=== PATIENT | male | born 1985 | race Caucasian/White ===

== ENCOUNTER → 2020-09-09 | Outpatient (CLI) | payer BC ==
--- NOTE | 2020-09-09 11:13 | XR ---
EXAMINATION TYPE: XR chest 2V DATE OF EXAM: 09/09/2020 COMPARISON: NONE HISTORY: Chest pain TECHNIQUE: Frontal and lateral views of the chest are obtained. FINDINGS: There is no focal air space opacity. No evidence for pneumothorax. No pleural effusion. The cardiac silhouette size is within normal limits. The osseous structures are grossly intact. IMPRESSION: 1. No acute cardiopulmonary process.
--- NOTE | 2020-09-09 13:04 | CT ---
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 FINDINGS: LUNG BASES-: No visible nodule. No infiltrate. LIVER/GB: No calcified gallstones. No space occupying hepatic lesion. Biliary tree is of normal ca liber. PANCREAS: No inflammation. No distinct mass. SPLEEN: No splenic enlargement. No lesion seen. ADRENALS: No nodule. No thickening. KIDNEYS/BLADDER: No hydronephrosis. No nephrolithiasis. No distinct renal mass. Urinary bladder g rossly unremarkable. BOWEL: Normal appendix. Normal bowel caliber. No inflammation. GENITAL ORGANS: No gross abnormality. LYMPH NODES: No greater than 1cm abdominal or pelvic lymph nodes are appreciated. AORTA: No significant abnormality. OSSEOUS STRUCTURES: No significant abnormality is seen. OTHER: No significant additional abnormality is seen. IMPRESSION: 1. No evidence for metastatic disease.
== END | disposition home or self-care (01) ==
LOC: RADCTMAIN 10:41
PROVIDERS: ATTEND Urology
DX: C62.92 Malignant neoplasm of left testis, unspecified whether descended or undescended (principal); Z88.5 Allergy status to narcotic agent; Z88.8 Allergy status to other drugs, medicaments and biological substances
CPT/HCPCS: 71046; 74177; Q9967 ×2

== ENCOUNTER → 2021-02-17 | Outpatient (CLI) | payer BC ==
--- NOTE | 2021-02-17 11:32 | XR ---
EXAMINATION TYPE: XR chest 2V DATE OF EXAM: 02/17/2021 COMPARISON: 09/09/2020 HISTORY: Chest pain TECHNIQUE: Frontal and lateral views of the chest are obtained. FINDINGS: There is no focal air space opacity. No evidence for pneumothorax. No pleural effusion. The cardiac silhouette size is within normal limits. The osseous structures are grossly intact. IMPRESSION: 1. No acute cardiopulmonary process.
--- NOTE | 2021-02-17 13:37 | CT ---
EXAMINATION TYPE: CT abdomen pelvis w con DATE OF EXAM: 02/17/2021 COMPARISON: 09/09/2020 HISTORY: follow up testicular cancer CT DLP: 444.1 mGycm CONTRAST: CT scan of the abdomen and pelvis is performed with Oral Contrast and with IV Contrast, patient injec alicja with 100 mL of Isovue 300. FINDINGS: LUNG BASES-: No visible nodule. No infiltrate. LIVER/GB: No calcified gallstones. No space occupying hepatic lesion. Biliary tree is of normal ca liber. PANCREAS: No inflammation. No distinct mass. SPLEEN: No splenic enlargement. No lesion seen. ADRENALS: No nodule. No thickening. KIDNEYS/BLADDER: No hydronephrosis. No nephrolithiasis. No distinct renal mass. Urinary bladder g rossly unremarkable. BOWEL: Normal appendix. Normal bowel caliber. No inflammation. GENITAL ORGANS: No gross abnormality. LYMPH NODES: No greater than 1cm abdominal or pelvic lymph nodes are appreciated. Retroperitoneal cl ips noted. AORTA: No significant abnormality. OSSEOUS STRUCTURES: No significant abnormality is seen. OTHER: No significant additional abnormality is seen. IMPRESSION: 1. No evidence for metastatic disease.
== END ==
LOC: RADCTMAIN 11:04
PROVIDERS: ATTEND Urology
DX: C62.90 Malignant neoplasm of unspecified testis, unspecified whether descended or undescended (principal); R07.9 Chest pain, unspecified
CPT/HCPCS: 71046; 74177; Q9967

== ENCOUNTER → 2022-02-18 | Outpatient (CLI) | payer BC ==
--- NOTE | 2022-02-19 08:15 | CT ---
EXAMINATION TYPE: CT abdomen pelvis w con CT DLP: 412.9 mGycm, Automated exposure control for dose reduction was used. DATE OF EXAM: 02/18/2022 4:45 PM COMPARISON: CT abdomen pelvis most recent from 02/17/2021. CLINICAL INDICATION:Male, 36 years old with history of C62.00 MAL NEOPLASM OF TESTIS; Post cancer obs ervation, testis CA s/p double orchiotomy. TECHNIQUE: Standard CT of the abdomen and pelvis following the administration of 100 cc of Isovue 3 00 IV contrast material. Coronal and sagittal reformats were performed. FINDINGS: LOWER CHEST: Unremarkable ABDOMEN LIVER: Unremarkable GALLBLADDER AND BILE DUCTS: Layering increased densities within the lumen consistent with gallstones are present. PANCREAS: Unremarkable. SPLEEN: Unremarkable. ADRENAL GLANDS: Unremarkable. KIDNEYS AND URETERS: No evidence of hydronephrosis or renal calculus. The ureters are unremarkable. PELVIS BLADDER: Unremarkable REPRODUCTIVE: The testes are surgically removed there is a prosthetic testes seen within the scrotal sac. ABDOMEN & PELVIS STOMACH AND BOWEL: No evidence of bowel obstruction. PERITONEUM: No evidence of pneumoperitoneum or free fluid. Scattered surgical clips are seen in the r etroperitoneum. VASCULATURE: No evidence of aortic aneurysm. MUSCULOSKELETAL: No acute osseous abnormalities LYMPH NODES: No gross evidence for lymphadenopathy. SOFT TISSUE/ABDOMINAL WALL: Unremarkable IMPRESSION: 1. No convincing evidence for recurrent disease. 2. Cholelithiasis.
--- NOTE | 2022-02-20 20:37 | XR ---
EXAMINATION TYPE: XR chest 2V DATE OF EXAM: 02/18/2022 COMPARISON: 02/17/2021 INDICATION: Testicular cancer TECHNIQUE: Frontal and lateral views of the chest are obtained. FINDINGS: The heart size is normal. The pulmonary vasculature is normal. Just inferior to the scapular tip is an ill-defined slight increased density not previously identifie d. Additional evaluation with CT chest recommended. IMPRESSION: 1. There is ill-defined slight increased density measuring 1.9 cm inferior to the left scapular tip. Additional workup with CT is recommended.
== END | disposition home or self-care (01) ==
LOC: RADCTMAIN 16:05
PROVIDERS: ATTEND Urology
DX: C62.00 Malignant neoplasm of unspecified undescended testis (principal); K80.20 Calculus of gallbladder without cholecystitis without obstruction
CPT/HCPCS: 71046; 74177; Q9967

== ENCOUNTER → 2022-03-09 | Outpatient (CLI) | payer BC ==
--- NOTE | 2022-03-09 14:19 | CT ---
EXAMINATION TYPE: CT chest w con DATE OF EXAM: 03/09/2022 COMPARISON: HISTORY: testicular CA CT DLP: 169.1 mGycm Automated exposure control for dose reduction was used. TECHNIQUE: CT scan of the chest is performed with IV Contrast, patient injected with 100 mL of Isovue 300. MIP Images are created on CT scanner and reviewed. 3D reconstructed images are created on an independent workstation and reviewed. FINDINGS: LUNGS: The lungs are grossly clear, there is no consolidative pneumonia. There is no pleural effusi on or pneumothorax seen. The tracheobronchial tree is patent. Biapical pleural thickening noted. Sub -5 mm subpleural nodules in the apices likely is related to pleural thickening and benign. MEDIASTINUM: There are no greater than 1 cm hilar or mediastinal lymph nodes. No pericardial effusi on is seen. Residual thymic tissue present in the anterior mediastinum. Aorta of normal caliber. Hea rt size normal. Pulmonary arteries 7 optimally. OTHER: Mild hypertrophic changes of the spine. Multiple gallstones again noted. IMPRESSION: 1. No diagnostic evidence of metastases. 2. Cholelithiasis. 3. Apical pleural thickening with some 5 mm subpleural nodularity likely is benign.
== END | disposition home or self-care (01) ==
LOC: RADCTMAIN 09:24
PROVIDERS: ATTEND Urology
DX: C62.90 Malignant neoplasm of unspecified testis, unspecified whether descended or undescended (principal); K80.20 Calculus of gallbladder without cholecystitis without obstruction; J94.8 Other specified pleural conditions
CPT/HCPCS: 71260; Q9967

== ENCOUNTER 2022-08-24 12:46 | Emergency (ER) | payer BC ==
[2022-08-24 12:56] VITALS: TEMP 98
[2022-08-24] MEDS ORDERED: SODIUM CHLORIDE 0.9% 1,000 ML IV STA (12:56)
[2022-08-24 13:12] LABS: Basophils # (A) 0.1 k/uL (0-0.2); Basophils % (A) 1 %; Eosinophils % (A) 1 %; HCT 43.3 % (39.0-53.0); HGB 14.1 gm/dL (13.0-17.5); Lymphocytes # (A) 1.8 k/uL (1.0-4.8); Lymphocytes % (A) 35 %; MCH 29.4 pg (25.0-35.0); MCHC 32.6 g/dL (31.0-37.0); MCV 90.3 fL (80.0-100.0); Mean Platelet Volume 9.5; Monocytes # (A) 0.3 k/uL (0-1.0); Monocytes % (A) 6 %; Neutrophils # (A) 2.8 k/uL (1.3-7.7); Neutrophils % (A) 53 %; Platelet Count 239 k/uL (150-450); WBC 5.2 k/uL (3.8-10.6)
[2022-08-24 13:22] LABS: ALT 25 U/L (4-49); AST 29 U/L (17-59); African American GFR (CKD) >90 (>60 ml/min/1.73 sqM); Albumin 4.9 g/dL (3.5-5.0); Alkaline Phosphatase 51 U/L (38-126); Anion Gap 20 mmol/L; Blood Urea Nitrogen 18 mg/dL (9-20); Calcium 9.3 mg/dL (8.4-10.2); Carbon Dioxide 17 mmol/L (22-30); Chloride 99 mmol/L (98-107); Glucose 118 mg/dL (74-99); Magnesium 1.9 mg/dL (1.6-2.3); Non-African American GFR(CKD) >90 (>60 ml/min/1.73 sqM); Potassium 3.3 mmol/L (3.5-5.1); Sodium 136 mmol/L (137-145); Total Bilirubin 0.4 mg/dL (0.2-1.3); Total Protein 7.6 g/dL (6.3-8.2)
[2022-08-24 13:24] LABS: Partial Thromboplastin Time 23.3 sec (22.0-30.0); Prothrombin Time 11.1 sec (9.0-12.0)
[2022-08-24] MEDS ORDERED: POTASSIUM CHLORIDE ER 20 MEQ TAB.ER PO STA (14:08)
--- NOTE | 2022-08-24 14:11 | ED ---
Anxiety HPI - General Chief Complaint: Anxiety Stated Complaint: Anxiety,syncope Time Seen by Provider: 08/24/22 12:48 Source: patient Mode of arrival: ambulatory - History of Present Illness Initial Comments: Patient's 36-year-old male with a past medical history testicular cancer status post orchiectomy of both testicles who presents to the emergency department with a chief complaint of anxiety. Patient was getting routine blood work drawn today when he had a vasovagal episode. Patient has history vasovagal syncope due to blood draws. The syncopal episode was witnessed by hospital staff. Patient did not fall or hit his head. He is not on blood thinners. Patient was unconscious for less than 30 seconds. After patient came to he became very anxious and had a panic attack. Patient started breathing very hard and he was sent to the emergency room. Patient reports anxiety currently. Admits to infrequent history panic attacks. He denies fever, chills, lightheadedness, dizziness, chest pain, shortness of breath, abdominal pain, nausea, vomiting, diarrhea. Does report pain in his left contracted hand. Denies injury. Denies history of cardiac disease including arrhythmia. Denies a family history of arrhythmia and sudden . - Related Data Home Medications: Home Medications Medication Instructions Recorded Confirmed Testosterone [Androgel 1.62%] 2 pump TRANSDERM DAILY 08/24/22 08/24/22 Previous Rx's Medication Instructions Recorded hydrOXYzine HCL 10 mg PO BID PRN #10 tab 08/24/22 Allergies/Adverse Reactions: Allergies Allergy/AdvReac Type Severity Reaction Status Date / Time codeine Allergy FAINTING Verified 08/24/22 13:35 AND DISORIENTED" hydrocodone [From Vicodin] Allergy fainting Verified 08/24/22 13:35 and disoriented Review of Systems ROS Statement: Those systems with pertinent positive or pertinent negative responses have been documented in the HPI. ROS Other: All systems not noted in ROS Statement are negative. Past Medical History Past Medical History: Cancer Additional Past Medical History / Comment(s): TESTICULAR CANCER History of Any Multi-Drug Resistant Organisms: None Reported Additional Past Surgical History / Comment(s): LYMPH NODES REMOVED IN GROIN,TESTICLE SURGERY Past Anesthesia/Blood Transfusion Reactions: No Reported Reaction Additional Past Anesthesia/Blood Transfusion Reaction / Comment(s): possible reaction to anesthesia 20 years unsure of reaction Past Psychological History: Anxiety Smoking Status: Never smoker - Past Family History Mother Family Medical History: Cancer General Exam General appearance: alert, anxious Eye exam: Present: normal appearance, PERRL, EOMI. Absent: scleral icterus, conjunctival injection, periorbital swelling Respiratory exam: Present: normal lung sounds bilaterally. Absent: respiratory distress, wheezes, rales, rhonchi, stridor, chest wall tenderness, accessory muscle use Cardiovascular Exam: Present: regular rate, normal rhythm, normal heart sounds. Absent: systolic murmur, diastolic murmur, rubs, gallop, clicks Extremities exam: Present: other (left contracted hand ) Neurological exam: Present: alert, oriented X3, CN II-XII intact Psychiatric exam: Present: normal affect, anxious. Absent: normal mood, homicidal ideation, suicidal ideation Skin exam: Present: warm, dry, intact, normal color. Absent: rash Course Vital Signs 08/24/22 08/24/22 12:49 14:55 Temperature 98.0 F 98.0 F Pulse Rate 54 L 73 Respiratory 32 H 16 Rate Blood Pressure 106/78 109/75 O2 Sat by Pulse 98 99 Oximetry Medical Decision Making - Medical Decision Making This is a 36-year-old male who presents for panic attack after vasovagal episode. Patient initially hyperventilating with left contracted hand. After breathing exercises patient is able to relax with slowed breathing and resolution of hand pain/contracture. Patient does not have chest pain or shortness of breath. He does not have history of cardiac disease. EKG shows sinus tachycardia withoutnew ST or T-wave abnormality. Laboratory studies obtained. There is mild hypokalemia at 3.3. There is respiratory alkalosis very likely due to hyperventilation. Troponin is within normal limits. Other laboratory studies are unremarkable. Chest x-ray negative for acute process. Patient given potassium supplement. He was observed closely in the emergency department and continued to feel well. He did not have any further panic attack symptoms or syncopal episodes. Patient will be discharged with hydroxyzine. We discussed vasovagal syncope in detail. Patient to follow-up with primary care provider regarding anxiety and syncope. He will have repeat potassium drawn with his PCP. Dr. Arce is my attending. - Lab Data Result diagrams: 08/24/22 13:03 08/24/22 13:03 Lab Results 08/24/22 08/24/2222 Range/Units 13:03 13:03 13:03 WBC 5.2 (3.8-10.6) k/uL RBC 4.80 (4.30-5.90) m/uL Hgb 14.1 (13.0-17.5) gm/dL Hct 43.3 (39.0-53.0) % MCV 90.3 (80.0-100.0) fL MCH 29.4 (25.0-35.0) pg MCHC 32.6 (31.0-37.0) g/dL RDW 13.0 (11.5-15.5) % Plt Count 239 (150-450) k/uL MPV 9.5 Neutrophils % 53 % Lymphocytes % 35 % Monocytes % 6 % Eosinophils % 1 % Basophils % 1 % Neutrophils # 2.8 (1.3-7.7) k/uL Lymphocytes # 1.8 (1.0-4.8) k/uL Monocytes # 0.3 (0-1.0) k/uL Eosinophils # 0.0 (0-0.7) k/uL Basophils # 0.1 (0-0.2) k/uL PT 11.1 (9.0-12.0) sec INR 1.0 (<1.2) APTT 23.3 (22.0-30.0) sec Sodium 136 L (137-145) mmol/L Potassium 3.3 L (3.5-5.1) mmol/L Chloride 99 (98-107) mmol/L Carbon Dioxide 17 L (22-30) mmol/L Anion Gap 20 mmol/L BUN 18 (9-20) mg/dL Creatinine 0.96 (0.66-1.25) mg/dL Est GFR (CKD-EPI)AfAm >90 (>60 ml/min/1.73 sqM) Est GFR (CKD-EPI)NonAf >90 (>60 ml/min/1.73 sqM) Glucose 118 H (74-99) mg/dL Calcium 9.3 (8.4-10.2) mg/dL Magnesium 1.9 (1.6-2.3) mg/dL Total Bilirubin 0.4 (0.2-1.3) mg/dL AST 29 (17-59) U/L ALT 25 (4-49) U/L Alkaline Phosphatase 51 (38-126) U/L Troponin I (0.000-0.034) ng/mL Total Protein 7.6 (6.3-8.2) g/dL Albumin 4.9 (3.5-5.0) g/dL 08/24/22 Range/Units 13:03 WBC (3.8-10.6) k/uL RBC (4.30-5.90) m/uL Hgb (13.0-17.5) gm/dL Hct (39.0-53.0) % MCV (80.0-100.0) fL MCH (25.0-35.0) pg MCHC (31.0-37.0) g/dL RDW (11.5-15.5) % Plt Count (150-450) k/uL MPV Neutrophils % % Lymphocytes % % Monocytes % % Eosinophils % % Basophils % % Neutrophils # (1.3-7.7) k/uL Lymphocytes # (1.0-4.8) k/uL Monocytes # (0-1.0) k/uL Eosinophils # (0-0.7) k/uL Basophils # (0-0.2) k/uL PT (9.0-12.0) sec INR (<1.2) APTT (22.0-30.0) sec Sodium (137-145) mmol/L Potassium (3.5-5.1) mmol/L Chloride (98-107) mmol/L Carbon Dioxide (22-30) mmol/L Anion Gap mmol/L BUN (9-20) mg/dL Creatinine (0.66-1.25) mg/dL Est GFR (CKD-EPI)AfAm (>60 ml/min/1.73 sqM) Est GFR (CKD-EPI)NonAf (>60 ml/min/1.73 sqM) Glucose (74-99) mg/dL Calcium (8.4-10.2) mg/dL Magnesium (1.6-2.3) mg/dL Total Bilirubin (0.2-1.3) mg/dL AST (17-59) U/L ALT (4-49) U/L Alkaline Phosphatase (38-126) U/L Troponin I <0.012 (0.000-0.034) ng/mL Total Protein (6.3-8.2) g/dL Albumin (3.5-5.0) g/dL Disposition Clinical Impression: Hyperventilation, Acute anxiety, Panic attack, Vaso vagal episode Disposition: HOME SELF-CARE Condition: Good Instructions (If sedation given, give patient instructions): Syncope (ED), Panic Attack (ED) Additional Instructions: Take medication as directed for severe anxiety/panic attacks. Please follow up with primary care provider in one to 2 days. Your potassium was a little low today. You will need to have repeat potassium level drawn at her primary care provider's office. Return to the emergency department experience new, concerning, or worsening symptoms. Prescriptions: hydrOXYzine HCL 10 mg PO BID PRN #10 tab PRN Reason: Anxiety Is patient prescribed a controlled substance at d/c from ED?: No Referrals: Leon Samaniego DO [Primary Care Provider] - 1-2 days Time of Disposition: 14:11
[2022-08-24 14:56] VITALS: BP 109/75; PULSE 73; RESP 16
== END 2022-08-24 14:55 | disposition home or self-care (01) ==
LOC: EC 12:46
DX: R06.4 Hyperventilation (principal); F41.9 Anxiety disorder, unspecified; Z88.5 Allergy status to narcotic agent; F41.0 Panic disorder [episodic paroxysmal anxiety]; R55 Syncope and collapse
CPT/HCPCS: 36415; 80053; 83735; 84484; 85025; 85610; 85730; 96360; 99284

== ENCOUNTER → 2022-08-24 | Outpatient (CLI) | payer BC ==
[2022-08-24 12:53] LABS: HCT 44.1 % (39.0-53.0); HGB 14.5 gm/dL (13.0-17.5); MCH 29.8 pg (25.0-35.0); MCHC 32.9 g/dL (31.0-37.0); MCV 90.8 fL (80.0-100.0); Mean Platelet Volume 9.6; Platelet Count 229 k/uL (150-450); RBC 4.86 m/uL (4.30-5.90); RDW 12.9 % (11.5-15.5); WBC 4.2 k/uL (3.8-10.6)
--- NOTE | 2022-08-24 13:01 | XR ---
EXAMINATION TYPE: XR chest 2V DATE OF EXAM: 08/24/2022 COMPARISON: 02/18/2022 INDICATION: Testicular cancer TECHNIQUE: Frontal and lateral views of the chest are obtained. FINDINGS: The heart size is normal. The pulmonary vasculature is normal. The lungs are clear. Prior subtle infiltrate within the left midlung is not evident on the current e xam. IMPRESSION: 1. No acute pulmonary process.
[2022-08-24 13:04] VITALS: RESP 16
[2022-08-24 13:06] VITALS: BP 116/68; PULSE 61
== END | disposition home or self-care (01) ==
LOC: RADCTMAIN 11:43
PROVIDERS: ATTEND Urology
DX: C62.00 Malignant neoplasm of unspecified undescended testis (principal)
CPT/HCPCS: 71046; 82105; 83615; 84403; 85027

== ENCOUNTER → 2023-08-18 | Outpatient (CLI) | payer BC ==
--- NOTE | 2023-08-18 23:21 | CT ---
EXAMINATION TYPE: CT abdomen pelvis w con DATE OF EXAM: 08/18/2023 COMPARISON: 02/18/2022. HISTORY: TESTICULAR CA CT DLP: 433.2 mGycm Automated exposure control for dose reduction was used. TECHNIQUE: Helical acquisition of images was performed from the lung bases through the pelvis. CONTRAST: Performed with Oral Contrast and with IV Contrast, patient injected with 100ml mL of Isovue 300. FINDINGS: LOWER CHEST : The visualized lung bases are clear. There are no pleural or pericardial effusions. ABDOMEN: Liver and Biliary system: Normal. Adrenal glands: Normal. Kidneys and ureters: There are no renal stones or hydronephrosis. No ureteral stones are present.. Spleen: Normal. Pancreas: Normal. Gallbladder: Multiple gallstones are seen within the gallbladder. Lymph nodes, Peritoneum and mesentery: There is no mesenteric or retroperitoneal lymphadenopathy. Gastrointestinal tract: There are no dilated loops of bowel or free intraperitoneal air. . The appe ndix is normal. Aorta/IVC: No aortic aneurysm.. IVC normal. Abdominal wall: Normal. PELVIS: Fluid: There is no free fluid in the pelvis. Lymph Nodes: There is no pelvic or inguinal lymphadenopathy.. Urinary bladder: Normal. BONES: There are no osseous destructive lesions.. ADDITIONAL SIGNIFICANT FINDINGS: Testicular prosthesis is seen.. IMPRESSION: 1. No definitive evidence of metastatic disease seen within the abdomen or pelvis. 2. Cholelithiasis.
== END | disposition home or self-care (01) ==
LOC: RADCTMAIN 15:09
PROVIDERS: ATTEND Urology
DX: C62.90 Malignant neoplasm of unspecified testis, unspecified whether descended or undescended (principal); K80.20 Calculus of gallbladder without cholecystitis without obstruction
CPT/HCPCS: 74177; Q9967

== ENCOUNTER → 2023-12-01 | Outpatient (CLI) | payer BC ==
--- NOTE | 2023-12-01 10:23 | CT ---
EXAMINATION TYPE: CT chest w con DATE OF EXAM: 12/01/2023 COMPARISON: Prior chest CT March 09, 2022 HISTORY: lung nodule f/u CT DLP: 183.8 mGycm. Automated Exposure Control for Dose Reduction was Utilized. TECHNIQUE: CT scan of the thorax is performed following with IV Contrast, patient injected with 100 mL of Isovue 300. FINDINGS: LUNGS: Stable mild biapical pleural/parenchymal scarring. No new or enlarging greater than 5 mm pulm onary nodules. There is no pleural effusion or pneumothorax seen. The tracheobronchial tree is paten t. MEDIASTINUM: There are no greater than 1 cm hilar or mediastinal lymph nodes. No cardiomegaly or pe ricardial effusion is seen. OTHER: No additional significant abnormality is seen. IMPRESSION: No new or enlarging greater than 5 mm pulmonary nodules.
== END | disposition home or self-care (01) ==
LOC: RADCTMAIN 09:09
PROVIDERS: ATTEND Family Medicine
DX: R91.1 Solitary pulmonary nodule (principal)
CPT/HCPCS: 71260; Q9967

== ENCOUNTER → 2024-09-04 | Outpatient (CLI) | payer BC ==
--- NOTE | 2024-09-04 13:38 | XR ---
EXAMINATION TYPE: XR chest 2V DATE OF EXAM: 09/04/2024 1:25 PM COMPARISON: Chest radiographs from 08/24/2022, CT chest 12/01/2023 TECHNIQUE: XR chest 2V Frontal and lateral views of the chest. CLINICAL INDICATION:Male, 38 years old with history of C62.00 TESTICULAR CANCER; FINDINGS: Lungs/Pleura: There is no evidence of pleural effusion, focal consolidation, or pneumothorax. No siz able pulmonary nodules identified. Pulmonary vascularity: Unremarkable. Heart/mediastinum: Cardiomediastinal silhouette is unremarkable. Musculoskeletal: No acute osseous pathology. IMPRESSION: 1. No acute cardiopulmonary disease/process. 2. No sizable pulmonary nodules identified. CT is more sensitive. [facility], , 09/04/2024 1:36 PM
--- NOTE | 2024-09-04 18:33 | CT ---
EXAMINATION TYPE: CT abdomen w con CT DLP: 631 mGycm, Automated exposure control for dose reduction was used. DATE OF EXAM: 09/04/2024 2:16 PM COMPARISON: CT abdomen pelvis 08/18/2023, 09/02/2022 CLINICAL INDICATION:Male, 38 years old with history of C62.00 TESTICULAR CANCER; f/u testicular ca TECHNIQUE: Standard CT of the abdomen following the administration of 100 cc of Isovue 300 IV contr ast material and oral contrast. Coronal and sagittal reformats were performed. FINDINGS: LOWER CHEST: Unremarkable ABDOMEN LIVER: Stable subcentimeter hypodense focus within the right hepatic dome. 2 small echogenic areas th at likely represents a cyst. No new suspicious hepatic lesions. Portal venous system appears patent. GALLBLADDER AND BILE DUCTS: Lithiasis. No surrounding inflammatory changes. No biliary ductal dilatat ion. PANCREAS: Unremarkable. SPLEEN: Unremarkable. ADRENAL GLANDS: Unremarkable. KIDNEYS AND URETERS: No evidence of hydronephrosis or renal calculus. The kidneys enhance symmetrical ly. Contrast is demonstrated within both collecting systems on the delayed phase. Left renal 1.1 cm c yst. STOMACH AND BOWEL: Stomach and duodenum are unremarkable. Enteric contrast reaches the distal small b owel. No focal bowel wall thickening or surrounding inflammatory changes. No evidence of bowel obstru ction. PERITONEUM/RETROPERITONEUM: No evidence of pneumoperitoneum or free fluid. Postsurgical changes with multiple surgical clips within the retroperitoneum. VASCULATURE: No evidence of aortic aneurysm. MUSCULOSKELETAL: No acute osseous abnormalities. No aggressive osseous lesion. LYMPH NODES: No evidence for lymphadenopathy. SOFT TISSUE/ABDOMINAL WALL: Unremarkable IMPRESSION: 1. No evidence of metastatic disease within the abdomen. No visualized lymphadenopathy. 2. Cholelithiasis. [facility], , 09/04/2024 6:31 PM
== END | disposition home or self-care (01) ==
LOC: RADCTMAIN 13:02
PROVIDERS: ATTEND Urology
DX: C62.00 Malignant neoplasm of unspecified undescended testis
CPT/HCPCS: 71046; 74160